=== PATIENT | female | born 1970 | race Caucasian/White ===

== ENCOUNTER → 2022-08-22 | Outpatient (CLI) | payer BC | END | disposition home or self-care (01) | LOC: RAH 08-21 12:51 | PROVIDERS: ATTEND Surgery Surgical Oncology | DX: M48.02 Spinal stenosis, cervical region (principal); Z98.1 Arthrodesis status | CPT/HCPCS: 72040 ==

== ENCOUNTER → 2022-10-29 | Outpatient (CLI) | payer BC | END | disposition home or self-care (01) | LOC: RAH 11:08 | PROVIDERS: ATTEND Surgery Surgical Oncology | DX: M48.02 Spinal stenosis, cervical region (principal); Z98.890 Other specified postprocedural states | CPT/HCPCS: 72040 ==